=== PATIENT | male | born 1990 | race Two or more races ===

== ENCOUNTER 2021-09-04 20:47 | Emergency (ER) | payer SELFPAY ==
[2021-09-04] MEDS ORDERED: Ketorolac Tromethamine 30 MG/ML VIAL ONE (21:37)
== END 2021-09-04 22:25 | disposition home or self-care (01) ==
LOC: CSHERS 20:47 → EEVIPCON 20:47 → CSHERS 22:25
DX: S40.022A Contusion of left upper arm, initial encounter (principal); F17.210 Nicotine dependence, cigarettes, uncomplicated; Y00.XXXA Assault by blunt object, initial encounter
CPT/HCPCS: 96374; J1885